=== PATIENT | female | born 1950 | race African-American/Black ===

== ENCOUNTER 2016-07-31 05:21 | Emergency (ER) | payer MEDICARE, MEDICAID ==
[~2016-07-31] VITALS: Ht 172.7 cm; Wt 81.0 kg
[~2016-07-31 05:21] MED LIST: AMLO10TA4; CAPT12.53; ERGO400C; INSASP; METF1000; PRAVASTATIN; [UNRECOGNIZED DRUG - OTHER]
[2016-07-31] MEDS ORDERED: IPRATROPIUM BROMIDE (0.02%) 0.5MG/2.5ML NEB HHN STA (06:20)
[2016-07-31] MEDS ORDERED: ALBUTEROL (0.083%) 2.5MG/3ML NEB HHN STA (06:20)
[2016-07-31 06:33] LABS: EOSINOPHILS % 2.5 % (0.0-5.0); HEMATOCRIT. 36.6 % (36.0-48.0); HEMOGLOBIN. 11.9 g/dL (12.0-16.0); LYMPHOCYTES % 47.1 % (20.0-50.0); MEAN CORPUSCULAR HEMOGLOBIN 25.9 pg (28.0-32.0); MEAN CORPUSCULAR VOLUME 79.8 fL (81.0-99.0); MEAN PLATELET VOLUME 9.3 fl (7.4-10.4); MONOCYTES % 9.8 % (2.0-8.0); NEUTROPHILS % 39.6 % (40.0-76.0); PLATELET 264 x1000/uL (130-400); RED BLOOD CELL COUNT 4.58 mill/uL (4.2-5.4); RED CELL DISTRIBUTION WIDTH 15.4 % (11.6-14.6)
[2016-07-31 07:27] VITALS: BP 134/86
== END 2016-07-31 07:58 | disposition home or self-care (01) ==
LOC: ER 05:21
DX: J40 Bronchitis, not specified as acute or chronic (principal); E86.0 Dehydration; I10 Essential (primary) hypertension; E11.9 Type 2 diabetes mellitus without complications; G80.9 Cerebral palsy, unspecified; Z86.73 Personal history of transient ischemic attack (TIA), and cerebral infarction without residual deficits; Z79.4 Long term (current) use of insulin
CPT/HCPCS: 36415; 71010; 80048; 85025; 94640; 99285; J7611

== ENCOUNTER → 2017-09-13 | Outpatient (CLI) | payer MEDICARE, MEDICAID ==
[~2017-09-13] MED LIST changes: +ATOR20TA65 PO; +CANA1TAB4 PO; +CLOP75TA33 PO; +INSU300I SQ
== END | disposition home or self-care (01) ==
LOC: CARD 10:56
PROVIDERS: ATTEND Family Medicine
DX: Z01.818 Encounter for other preprocedural examination (principal); E11.9 Type 2 diabetes mellitus without complications; I10 Essential (primary) hypertension; E78.5 Hyperlipidemia, unspecified; Z79.899 Other long term (current) drug therapy
CPT/HCPCS: 71045; 93005

== ENCOUNTER → 2017-10-06 | Outpatient (CLI) | payer MEDICARE, MEDICAID | END | disposition home or self-care (01) | LOC: RAD 11:20 | PROVIDERS: ATTEND Family Medicine | DX: M25.561 Pain in right knee (principal); E11.9 Type 2 diabetes mellitus without complications; I10 Essential (primary) hypertension; E66.9 Obesity, unspecified | CPT/HCPCS: 73562 ==

== ENCOUNTER → 2017-12-16 | Outpatient (CLI) | payer MEDICARE, MEDICAID | END | disposition home or self-care (01) | LOC: RAD 15:25 | PROVIDERS: ATTEND Family Medicine | DX: Z01.818 Encounter for other preprocedural examination (principal); M47.892 Other spondylosis, cervical region; K04.7 Periapical abscess without sinus | CPT/HCPCS: 71045; 72040; 93005 ==

== ENCOUNTER 2023-03-22 21:40 | Emergency (ER) | payer MEDICARE, MEDICAID ==
[~2023-03-22] VITALS: Ht 180.3 cm; Wt 126.0 kg
[~2023-03-22 21:40] MED LIST changes: +AMOX1TAB16 MT; +BISA10SU62 RC; -CANA1TAB4 PO; -CAPT12.53; -METF1000
[2023-03-22 21:46] VITALS: O2SAT 99
[2023-03-22] MEDS: SODIUM CHLORIDE 0.9% 1,000 ML IV ONE (22:48)
[2023-03-22 23:10] VITALS: BP 160/76; PULSE 96; RESP 12; TEMP 98.8
[2023-03-23 00:14] LABS: BASOPHILS % 0.9 % (0.0-2.0); EOSINOPHILS % 2.3 % (0.0-5.0); HEMATOCRIT. 27.9 % (36.0-48.0); HEMOGLOBIN. 8.9 g/dL (12.0-16.0); LYMPHOCYTES % 24.2 % (20.0-50.0); MEAN CORPUSCULAR HEMOGLOBIN 26.2 pg (28.0-32.0); MEAN CORPUSCULAR HGB CONC 31.9 g/dL (31.0-37.0); MEAN CORPUSCULAR VOLUME 82.1 fL (81.0-99.0); MEAN PLATELET VOLUME 9.7 fl (7.4-10.4); MONOCYTES % 11.7 % (2.0-8.0); NEUTROPHILS % 60.9 % (40.0-76.0); PLATELET 217 x1000/uL (130-400); WHITE BLOOD COUNT 6.2 x1000/uL (4.5-11.0)
[2023-03-23 00:31] LABS: ALANINE AMINOTRANSFERASE 23 IU/L (10-49); ALBUMIN 3.6 g/dL (3.2-4.8); ASPARTATE AMINOTRANSFERASE 22 IU/L (<34); BETA HYDROXYBUTYRATE 0.2 mMol/L (0.0-0.3); BILIRUBIN TOTAL 0.3 mg/dL (0.1-1.0); CALCIUM 8.7 mg/dL (8.7-10.4); CARBON DIOXIDE 21 mEq/L (21-32); CHLORIDE 103 mEq/L (98-107); CREATININE 1.5 mg/dL (0.6-1.0); GLUCOSE 369 mg/dL (70-105); POTASSIUM 3.4 mEq/L (3.5-5.1); PROTEIN TOTAL 6.8 g/dL (6.0-8.3); SODIUM 134 mEq/L (136-145); TROPONIN I HIGH SENSITIVITY 9 ng/L (3.0-34); UREA NITROGEN BLOOD 16 mg/dL (9-23)
[2023-03-23] MEDS: INSULIN REGULAR (HUMULIN R) 300UNITS/3ML VIAL IV ONE (02:00)
[2023-03-23] MEDS: POTASSIUM CHLORIDE 20MEQ TABLET SR PO ONE (02:01)
== END 2023-03-23 10:05 | disposition home or self-care (01) ==
LOC: ER 21:40
DX: E11.65 Type 2 diabetes mellitus with hyperglycemia (principal); F03.90 Unspecified dementia, unspecified severity, without behavioral disturbance, psychotic disturbance, mood disturbance, and anxiety; Z86.73 Personal history of transient ischemic attack (TIA), and cerebral infarction without residual deficits; Z88.8 Allergy status to other drugs, medicaments and biological substances; Z88.0 Allergy status to penicillin
CPT/HCPCS: 99285; 71045; 80053; 82010; 82962 ×2; 85025; 84484; 36415; 96361; 96374; 93005; J7030; J1815

== ENCOUNTER 2023-11-10 12:40 | Emergency (ER) | payer MEDICARE, MEDICAID ==
[~2023-11-10] VITALS: Ht 160 cm; Wt 80.0 kg
[~2023-11-10 12:40] MED LIST changes: -AMOX1TAB16 MT; +ASCO500T20 PO; -ATOR20TA65 PO; +CELE-146 PO; +CHOL2000 PO; +CLOP-31 PO; -CLOP75TA33 PO; -ERGO400C; +FERR325T30 PO; +LIP40 PO; +MOM PO; +NALO25TA4 PO; +OXYB-52 PO; +POLY119P2 MT; +REPA1TAB5 PO; +SENN1TAB35 PO; +SITA50TA3 PO; +SUCR1TAB PO
[2023-11-10 12:43] VITALS: O2SAT 94
[2023-11-10 14:51] LABS: BASOPHILS % 0.7 % (0.0-2.0); DIFFERENTIAL COMMENT 0; EOSINOPHILS % 2.1 % (0.0-5.0); HEMATOCRIT. 25.4 % (36.0-48.0); HEMOGLOBIN. 8.2 g/dL (12.0-16.0); LYMPHOCYTES % 17.2 % (20.0-50.0); MEAN CORPUSCULAR HEMOGLOBIN 23.7 pg (28.0-32.0); MEAN CORPUSCULAR HGB CONC 32.1 g/dL (31.0-37.0); MEAN CORPUSCULAR VOLUME 73.7 fL (81.0-99.0); MEAN PLATELET VOLUME 7.9 fl (7.4-10.4); MONOCYTES % 10.4 % (2.0-8.0); NEUTROPHILS % 69.6 % (40.0-76.0); PLATELET 300 x1000/uL (130-400); RED BLOOD CELL COUNT 3.45 mill/uL (4.2-5.4); RED CELL DISTRIBUTION WIDTH 18.9 % (11.6-14.6); WHITE BLOOD COUNT 6.8 x1000/uL (4.5-11.0)
[2023-11-10 15:00] LABS: PROTHROMBIN TIME 10.7 sec (9.6-11.0)
[2023-11-10 15:04] LABS: CHLORIDE 96 mEq/L (98-107); POTASSIUM 3.1 mEq/L (3.5-5.1); SODIUM 132 mEq/L (136-145)
[2023-11-10 15:05] LABS: CALCIUM 9.2 mg/dL (8.7-10.4); CARBON DIOXIDE 28 mEq/L (21-32)
[2023-11-10 15:10] LABS: GLUCOSE 158 mg/dL (70-105); UREA NITROGEN BLOOD 10 mg/dL (9-23)
[2023-11-10 15:11] LABS: TROPONIN I HIGH SENSITIVITY 10 ng/L (3.0-34)
[2023-11-10 15:14] LABS: CREATININE 2.1 mg/dL (0.6-1.0)
[2023-11-10 16:45] VITALS: BP 146/89; PULSE 88; RESP 16; TEMP 36.89184; O2SAT 94
[2023-11-10 18:11] LABS: TOTAL IRON BINDING CAPACITY 355 ug/dl (250-425)
[2023-11-10 18:13] LABS: IRON 360 ug/dL (50-170)
[2023-11-10 18:14] LABS: FOLIC ACID (FOLATE) SERUM > 20.00 ng/mL (>5.38)
[2023-11-10 18:15] LABS: FERRITIN 26 ng/mL (10-291)
[2023-11-10 18:18] LABS: VITAMIN B12 SERUM > 2000 pg/mL (211-911)
== END 2023-11-10 18:17 | disposition home or self-care (01) ==
LOC: ER 12:40
DX: N18.6 End stage renal disease (principal); D64.9 Anemia, unspecified; J44.89 Other specified chronic obstructive pulmonary disease; I12.0 Hypertensive chronic kidney disease with stage 5 chronic kidney disease or end stage renal disease; E11.22 Type 2 diabetes mellitus with diabetic chronic kidney disease; Z99.2 Dependence on renal dialysis; Z88.0 Allergy status to penicillin; Z91.013 Allergy to seafood; Z79.899 Other long term (current) drug therapy; Z86.73 Personal history of transient ischemic attack (TIA), and cerebral infarction without residual deficits; Z20.822 Contact with and (suspected) exposure to COVID-19
CPT/HCPCS: 36415; 71045; 80048; 82607; 82728; 82746; 83540; 83550; 84484; 85025; 86850; 86900; 93005; 99285

== ENCOUNTER 2024-05-10 12:02 | Inpatient (IN) | payer MEDICARE, MEDICAID ==
[~2024-05-10] VITALS: Ht 162.6 cm; Wt 113.4 kg
[~2024-05-10 12:02] MED LIST changes: -AMLO10TA4; +AMLO10TA80 PO; +ASPI-1160 PO; +ATOR-2 PO; -BISA10SU62 RC; -CELE-146 PO; -CLOP-31 PO; +CLOP75TA33 PO; +FAMO40TA7 PO; -FERR325T30 PO; -INSASP; -INSU300I SQ; +INSU300I SUBCUT; -LIP40 PO; -MOM PO; -NALO25TA4 PO; -OXYB-52 PO; -POLY119P2 MT; -PRAVASTATIN; -SENN1TAB35 PO; -SUCR1TAB PO; -[UNRECOGNIZED DRUG - OTHER]
[2024-05-10] MEDS ORDERED: CEFEPIME 2GM IN DEXT 5% 100ML IV STA (12:20)
[2024-05-10] MEDS: VANCOMYCIN 1G PREMIX 200 ML IV ONE (12:30)
[2024-05-10 12:59] LABS: BASOPHILS % 1.2 % (0.0-2.0); HEMATOCRIT. 28.9 % (36.0-48.0); HEMOGLOBIN. 9.2 g/dL (12.0-16.0); LYMPHOCYTES % 9.4 % (20.0-50.0); MEAN CORPUSCULAR HGB CONC 31.7 g/dL (31.0-37.0); MEAN CORPUSCULAR VOLUME 82.2 fL (81.0-99.0); MEAN PLATELET VOLUME 8.6 fl (7.4-10.4); MONOCYTES % 5.8 % (2.0-8.0); NEUTROPHILS % 81.6 % (40.0-76.0); PLATELET 325 x1000/uL (130-400); RED BLOOD CELL COUNT 3.52 mill/uL (4.2-5.4); RED CELL DISTRIBUTION WIDTH 24.6 % (11.6-14.6); WHITE BLOOD COUNT 8.6 x1000/uL (4.5-11.0)
[2024-05-10 13:03] LABS: ADD RBC MORPHOLOGY YES; DIFFERENTIAL COMMENT 1
[2024-05-10 13:11] LABS: CARBON DIOXIDE 28 mEq/L (21-32); CHLORIDE 96 mEq/L (98-107); POTASSIUM 4.1 mEq/L (3.5-5.1); SODIUM 139 mEq/L (136-145)
[2024-05-10 13:12] LABS: CALCIUM 9.3 mg/dL (8.7-10.4)
[2024-05-10 13:17] LABS: GLUCOSE 154 mg/dL (70-105); TROPONIN I HIGH SENSITIVITY 16 ng/L (3.0-34); UREA NITROGEN BLOOD 52 mg/dL (9-23)
[2024-05-10 13:18] LABS: ALANINE AMINOTRANSFERASE 19 IU/L (10-49); ALBUMIN 3.6 g/dL (3.2-4.8); ASPARTATE AMINOTRANSFERASE 26 IU/L (<34); LACTATE DEHYDROGENASE 256 IU/L (120-246)
[2024-05-10 13:19] LABS: BILIRUBIN TOTAL 0.3 mg/dL (0.1-1.0); CREATINE KINASE 33 IU/L (34-145); PROTEIN TOTAL 7.7 g/dL (6.0-8.3)
[2024-05-10] MEDS: CEFEPIME 2GM/50ML DUPLEX 50 ML IV NR (13:19)
[2024-05-10] MEDS: SODIUM CHLORIDE 0.9% 500 ML IV ONE (13:19)
[2024-05-10 13:25] LABS: INR 1.1; PROTHROMBIN TIME 11.9 sec (9.6-11.0)
[2024-05-10 13:26] LABS: BILIRUBIN DIRECT < 0.1 mg/dL (<=3.0); ETHANOL BLOOD < 10 mg/dL (<10)
[2024-05-10 13:28] LABS: CREATININE 5.8 mg/dL (0.6-1.0)
[2024-05-10 13:35] LABS: BG BASE EXCESS 2.2 mmol/L (-2.0-3.0); BG CARBOXYHEMOGLOBIN 0.9 % (0.5-1.5); BG DEOXYHEMOGLOBIN 3.5 % (0.0-5.0); BG METHEMOGLOBIN 0.3 % (0.5-1.5); BG OXYGEN SATURATION 96.5 % (94.0-98.0); BG OXYHEMOGLOBIN 95.3 % (94.0-98.0); BG PCO2 32.1 mmHg (32.0-45.0); BG PO2 82.5 mmHg (83.0-108.0); BG SAMPLE SITE RIGHT RADIAL; BG TOTAL HEMOGLOBIN 9.1 g/dL (12.0-16.0); BG VENT MODE MASK - NRB
[2024-05-10 14:01] LABS: INFLUENZA TYPE A Presumptive Negative (Pres. Neg.); INFLUENZA TYPE B Presumptive Negative (Pres. Neg.)
[2024-05-10 14:03] LABS: RESPIRATORY SYNCYTIAL VIRUS Not Detected (Not Detectd)
[2024-05-10 14:18] LABS: ANISOCYTOSIS 4+; PLATELET ESTIMATE NORMAL
[2024-05-10 15:15] LABS: TROPONIN I HIGH SENSITIVITY 16 ng/L (3.0-34)
[2024-05-10] MEDS ORDERED: ONDANSETRON HCL 4MG/2ML INJ IV PRN (15:15)
[2024-05-10] MEDS ORDERED: IPRATROPIUM/ALBUTEROL 0.5-3(2.5)MG/3ML NEB HHN PRN (15:15)
[2024-05-10] MEDS ORDERED: ACETAMINOPHEN 650MG/20.3ML UDC GT PRN (15:15)
[2024-05-10 16:00] VITALS: BP 154/74; PULSE 110; RESP 23; TEMP 36.3; O2SAT 94
[2024-05-10] MEDS ORDERED: DEXTROSE 50% WATER 50ML SYRINGE IV PRN (17:45)
[2024-05-10 18:00] VITALS: BP 124/52; PULSE 89; RESP 5; O2SAT 100
[2024-05-10] MEDS: PANTOPRAZOLE SODIUM 40 MG/VIAL IV NR (19:02)
[2024-05-10 19:07] VITALS: BP 154/74; PULSE 102; RESP 19; TEMP 36.5
[2024-05-10] MEDS: INSULIN LISPRO 100 UNITS/ML SUBCUT SCH (19:40)
[2024-05-10 20:00] VITALS: BP 140/71; PULSE 89; RESP 15; TEMP 36.3; O2SAT 94
[2024-05-10] MEDS ORDERED: MEDICATION NOT ON FORMULARY EA (Atorvastatin Calcium 1 TAB) PO SCH (21:00)
[2024-05-10] MEDS: ASCORBIC ACID 500 MG TABLET PO SCH (21:12)
[2024-05-10] MEDS: ATORVASTATIN CALCIUM 40MG TABLET PO SCH (21:13)
[2024-05-10] MEDS: BLOOD SUGAR DIAGNOSTIC STRIP TEST SCH (21:13)
[2024-05-10] MEDS: INSULIN GLARGINE 100 UNITS/ML SUBCUT SCH (21:14)
[2024-05-10 22:00] VITALS: BP 131/66; PULSE 83; RESP 14; O2SAT 96
[2024-05-11] VITALS (21 sets, daily range): BP systolic 98–145; BP diastolic 54–102; PULSE 85–102; RESP 12–24; TEMP 36.2–37.1; O2SAT 90–99
[2024-05-11 06:42] LABS: POTASSIUM 4.5 mEq/L (3.5-5.1)
[2024-05-11 06:43] LABS: EOSINOPHILS % 3.2 % (0.0-5.0); HEMOGLOBIN. 9.1 g/dL (12.0-16.0); LYMPHOCYTES % 18.9 % (20.0-50.0); MEAN CORPUSCULAR HEMOGLOBIN 26.1 pg (28.0-32.0); MEAN CORPUSCULAR HGB CONC 31.2 g/dL (31.0-37.0); MEAN CORPUSCULAR VOLUME 83.4 fL (81.0-99.0); MEAN PLATELET VOLUME 8.5 fl (7.4-10.4); MONOCYTES % 10.4 % (2.0-8.0); NEUTROPHILS % 66.5 % (40.0-76.0); PLATELET 291 x1000/uL (130-400); RED BLOOD CELL COUNT 3.48 mill/uL (4.2-5.4); WHITE BLOOD COUNT 8.4 x1000/uL (4.5-11.0)
[2024-05-11 06:44] LABS: CALCIUM 9.5 mg/dL (8.7-10.4)
[2024-05-11 07:08] LABS: CREATININE 6.6 mg/dL (0.6-1.0)
[2024-05-11 07:18] LABS: DIFFERENTIAL COMMENT 1
[2024-05-11] MEDS ORDERED: HYDRALAZINE 20MG/ML VIAL IV PRN (08:00)
[2024-05-11] MEDS: CLOPIDOGREL 75MG TABLET PO SCH (09:20)
[2024-05-11] MEDS: ASPIRIN 81MG TABLET PO SCH (09:20)
[2024-05-11] MEDS: PANTOPRAZOLE SODIUM 40 MG/VIAL IV SCH (09:20)
[2024-05-11] MEDS ORDERED: AZITHROMYCIN 250 MG in DEXT 5% WATER 250 ML IV SCH (10:15)
[2024-05-11] MEDS: AZITHROMYCIN 500MG/250ML 250 ML IV SCH (12:26)
[2024-05-11] MEDS: CEFEPIME 1GM/50ML 50 ML IV SCH (12:26)
[2024-05-11 18:08] LABS: CLARITY URINE CLOUDY (CLEAR); COLOR URINE YELLOW (YELLOW); GLUCOSE URINE 1+ (NEGATIVE); KETONES URINE NEGATIVE (NEGATIVE); LEUKOCYTE ESTERASE URINE 2+ (NEGATIVE); NITRITE URINE NEGATIVE (NEGATIVE); OCCULT BLOOD URINE 1+ (NEGATIVE); PH URINE >=9.0 (4.5-8.0); PROTEIN URINE 2+ (NEGATIVE); SPECIFIC GRAVITY URINE 1.015 (1.005-1.030); UROBILINOGEN URINE 0.2 E.U./dL (0.2-1.0)
[2024-05-11 18:27] LABS: *AMPHETAMINES SCREEN URINE NEGATIVE (NEGATIVE); *BARBITURATES SCREEN URINE NEGATIVE (NEGATIVE); *BENZODIAZEPINES SCREEN URINE NEGATIVE (NEGATIVE); *COCAINE SCREEN URINE NEGATIVE (NEGATIVE)
[2024-05-11 18:28] LABS: CANNABINOID URINE SCREEN NEGATIVE (NEGATIVE); ECSTASY MDMA SCREEN URINE NEGATIVE (NEGATIVE); METHADONE URINE SCREEN NEGATIVE (NEGATIVE); OPIATES URINE SCREEN NEGATIVE (NEGATIVE); PHENCYCLIDINE URINE SCREEN NEGATIVE (NEGATIVE)
[2024-05-11 20:14] LABS: BACTERIA URINE 1+; RBC URINE 0-2 /hpf (0-2); SQUAMOUS EPITHELIAL CELL URINE 1+ /lpf (RARE/1+); WBC URINE 0-2 /hpf (0-2)
[2024-05-11 20:15] LABS: YEAST URINE 2+
[2024-05-11 21:50] LABS: HEPATITIS B SURFACE ANTIGEN NEGATIVE (Negative)
[2024-05-11] MEDS: EPOETIN ALFA-EPBX 4,000 UNIT/ML VIAL SUBCUT SCH (21:53)
[2024-05-11 22:10] LABS: HEPATITIS A AB IGM NEGATIVE (Negative)
[2024-05-11 22:11] LABS: HEPATITIS B CORE AB IGM NEGATIVE (Negative)
[2024-05-11 22:12] LABS: HEPATITIS C AB NON REACTIVE (Neg) (Negative)
[2024-05-12] VITALS (14 sets, daily range): BP systolic 115–147; BP diastolic 64–100; PULSE 78–103; RESP 10–24; TEMP 36.22512–37.8; O2SAT 93–99
[2024-05-12 08:58] LABS: BASOPHILS % 1.2 % (0.0-2.0); EOSINOPHILS % 4.1 % (0.0-5.0); HEMATOCRIT. 26.1 % (36.0-48.0); HEMOGLOBIN. 8.2 g/dL (12.0-16.0); MEAN CORPUSCULAR HEMOGLOBIN 26.1 pg (28.0-32.0); MEAN CORPUSCULAR HGB CONC 31.6 g/dL (31.0-37.0); MEAN CORPUSCULAR VOLUME 82.8 fL (81.0-99.0); MEAN PLATELET VOLUME 8.6 fl (7.4-10.4); MONOCYTES % 9.8 % (2.0-8.0); NEUTROPHILS % 69.9 % (40.0-76.0); PLATELET 278 x1000/uL (130-400); RED BLOOD CELL COUNT 3.15 mill/uL (4.2-5.4); RED CELL DISTRIBUTION WIDTH 23.6 % (11.6-14.6); WHITE BLOOD COUNT 7.1 x1000/uL (4.5-11.0)
[2024-05-12 09:24] LABS: CARBON DIOXIDE 29 mEq/L (21-32); CHLORIDE 102 mEq/L (98-107); POTASSIUM 3.9 mEq/L (3.5-5.1); SODIUM 140 mEq/L (136-145)
[2024-05-12 09:25] LABS: CALCIUM 9.5 mg/dL (8.7-10.4)
[2024-05-12 09:30] LABS: GLUCOSE 331 mg/dL (70-105); UREA NITROGEN BLOOD 33 mg/dL (9-23)
[2024-05-12 09:33] LABS: PHOSPHORUS 2.5 mg/dL (2.5-4.9)
[2024-05-12 09:46] LABS: ADD RBC MORPHOLOGY NO; DIFFERENTIAL COMMENT 1
[2024-05-12 11:28] LABS: BG BASE EXCESS 3.2 mmol/L (-2.0-3.0); BG CARBOXYHEMOGLOBIN 1.2 % (0.5-1.5); BG DEOXYHEMOGLOBIN 9.3 % (0.0-5.0); BG FRACTION INSPIRED OXYGEN 21; BG HCO3 ACT 25.5 mmol/L (21.0-28.0); BG METHEMOGLOBIN 0.3 % (0.5-1.5); BG OXYGEN SATURATION 90.6 % (94.0-98.0); BG OXYHEMOGLOBIN 89.2 % (94.0-98.0); BG PCO2 30.6 mmHg (32.0-45.0); BG PH 7.539 (7.350-7.450); BG PO2 55.6 mmHg (83.0-108.0); BG SAMPLE SITE RIGHT RADIAL; BG TOTAL HEMOGLOBIN 9.2 g/dL (12.0-16.0); BG VENT MODE ROOM AIR
[2024-05-12] MEDS ORDERED: HYDRALAZINE 10 MG in SODIUM CHLORIDE 0.9% 49.5 ML IV PRN (12:15)
[2024-05-12] MEDS: INSULIN LISPRO 100 UNITS/ML SUBCUT SCH (17:38)
[2024-05-12] MEDS: INSULIN GLARGINE 100 UNITS/ML SUBCUT SCH (22:06)
[2024-05-13] VITALS (15 sets, daily range): BP systolic 106–160; BP diastolic 51–90; PULSE 89–107; RESP 16–19; TEMP 36.33624–38.3; O2SAT 95–100
[2024-05-13] MEDS: ACETAMINOPHEN 650MG/20.3ML UDC GT PRN (05:55)
[2024-05-13 06:40] LABS: BASOPHILS % 1.2 % (0.0-2.0); EOSINOPHILS % 4.7 % (0.0-5.0); HEMATOCRIT. 27.5 % (36.0-48.0); HEMOGLOBIN. 8.6 g/dL (12.0-16.0); LYMPHOCYTES % 20.8 % (20.0-50.0); MEAN CORPUSCULAR HEMOGLOBIN 25.7 pg (28.0-32.0); MEAN CORPUSCULAR HGB CONC 31.2 g/dL (31.0-37.0); MEAN CORPUSCULAR VOLUME 82.6 fL (81.0-99.0); MEAN PLATELET VOLUME 8.3 fl (7.4-10.4); MONOCYTES % 8.5 % (2.0-8.0); NEUTROPHILS % 64.8 % (40.0-76.0); PLATELET 262 x1000/uL (130-400); RED BLOOD CELL COUNT 3.33 mill/uL (4.2-5.4); RED CELL DISTRIBUTION WIDTH 23.4 % (11.6-14.6); WHITE BLOOD COUNT 7.1 x1000/uL (4.5-11.0)
[2024-05-13 06:56] LABS: ADD RBC MORPHOLOGY NO; CHLORIDE 99 mEq/L (98-107); DIFFERENTIAL COMMENT 1; SODIUM 139 mEq/L (136-145)
[2024-05-13 06:57] LABS: CALCIUM 9.8 mg/dL (8.7-10.4); CARBON DIOXIDE 29 mEq/L (21-32)
[2024-05-13 07:02] LABS: CREATININE 4.2 mg/dL (0.6-1.0); GLUCOSE 399 mg/dL (70-105); UREA NITROGEN BLOOD 36 mg/dL (9-23)
[2024-05-13 07:04] LABS: PHOSPHORUS 2.1 mg/dL (2.5-4.9)
[2024-05-13] MEDS: FLUCONAZOLE 100MG TABLET PO SCH (09:00)
[2024-05-13] MEDS: INSULIN GLARGINE 100 UNITS/ML SUBCUT SCH (09:46)
[2024-05-13] MEDS ORDERED: LEVO750T68 MT (11:21)
[2024-05-13] MEDS: FLUCONAZOLE 40 MG/ML ORAL SYRINGE GT SCH (17:05)
[2024-05-13] MEDS ORDERED: POTASSIUM-SODIUM PHOSPHATE POWDER PACKET PO SCH (21:00)
== END 2024-05-13 19:33 | disposition home or self-care (01) | DRG 871 ==
LOC: ER 12:02 → 5EST 14:02 → EDBEDREQTM 14:03 → EDBEDREQ 14:03 → EDBEDREQSVC 14:03 → 6EST 05-12 12:10
PROVIDERS: ADMIT Internal Medicine; ATTEND Internal Medicine
PROC: 5A1D70Z Performance of Urinary Filtration, Intermittent, Less than 6 Hours Per Day (ICD-10-PCS; principal; 2024-05-11)
PROC: 5A1D70Z Performance of Urinary Filtration, Intermittent, Less than 6 Hours Per Day (ICD-10-PCS; 2024-05-12)
PROC: 5A1D70Z Performance of Urinary Filtration, Intermittent, Less than 6 Hours Per Day (ICD-10-PCS; 2024-05-13)
DX: A41.9 Sepsis, unspecified organism (principal); G80.0 Spastic quadriplegic cerebral palsy; J96.01 Acute respiratory failure with hypoxia; N18.6 End stage renal disease; G92.8 Other toxic encephalopathy; J18.9 Pneumonia, unspecified organism; I12.0 Hypertensive chronic kidney disease with stage 5 chronic kidney disease or end stage renal disease; I69.351 Hemiplegia and hemiparesis following cerebral infarction affecting right dominant side; J44.0 Chronic obstructive pulmonary disease with (acute) lower respiratory infection; N39.0 Urinary tract infection, site not specified; R47.01 Aphasia; E11.22 Type 2 diabetes mellitus with diabetic chronic kidney disease; D64.9 Anemia, unspecified; E11.621 Type 2 diabetes mellitus with foot ulcer; E78.5 Hyperlipidemia, unspecified; F03.90 Unspecified dementia, unspecified severity, without behavioral disturbance, psychotic disturbance, mood disturbance, and anxiety; G47.33 Obstructive sleep apnea (adult) (pediatric); Z20.822 Contact with and (suspected) exposure to COVID-19; H51.0 Palsy (spasm) of conjugate gaze; Y95 Nosocomial condition; L98.429 Non-pressure chronic ulcer of back with unspecified severity; R13.10 Dysphagia, unspecified; D50.9 Iron deficiency anemia, unspecified; M24.531 Contracture, right wrist; Z93.1 Gastrostomy status; Z99.2 Dependence on renal dialysis; Z82.49 Family history of ischemic heart disease and other diseases of the circulatory system; Z79.899 Other long term (current) drug therapy; Z79.82 Long term (current) use of aspirin; Z79.4 Long term (current) use of insulin; Z79.02 Long term (current) use of antithrombotics/antiplatelets; Z74.01 Bed confinement status; Z88.0 Allergy status to penicillin
CPT/HCPCS: 36415; 36600; 71045; 80048; 80076; 80305; 80320; 81003; 82375; 82550; 82805; 82962; 83605; 83615; 83735; 83880; 84100; 84145; 84484; 85025; 86705; 86709; 86850; 86900; 87077; 87186; 87340; 87420; 87426; 87804; 90935; 93005; 93970; 99291; J0456; J0692; J0885; J1815; J2470; J3370; J7040; G0480

== ENCOUNTER 2024-06-29 22:19 | Inpatient (IN) | payer MEDICARE, MEDICAID ==
[~2024-06-29] VITALS: Ht 165.1 cm; Wt 77.1 kg
[~2024-06-29 22:19] MED LIST changes: +CEFP100T8 PEG; +INSHUMSS SUBCUT; +KEPP500 MT; +MIDO5TAB4 GT; -REPA1TAB5 PO; -SITA50TA3 PO
[2024-06-29 23:54] LABS: BASOPHILS % 0.8 % (0.0-2.0); DIFFERENTIAL COMMENT 0; EOSINOPHILS % 1.8 % (0.0-5.0); HEMATOCRIT. 40.8 % (36.0-48.0); HEMOGLOBIN. 12.6 g/dL (12.0-16.0); LYMPHOCYTES % 14.2 % (20.0-50.0); MEAN CORPUSCULAR HEMOGLOBIN 25.1 pg (28.0-32.0); MEAN CORPUSCULAR HGB CONC 30.9 g/dL (31.0-37.0); MEAN CORPUSCULAR VOLUME 81.2 fL (81.0-99.0); MEAN PLATELET VOLUME 8.5 fl (7.4-10.4); MONOCYTES % 10.4 % (2.0-8.0); NEUTROPHILS % 72.8 % (40.0-76.0); PLATELET 297 x1000/uL (130-400); RED BLOOD CELL COUNT 5.02 mill/uL (4.2-5.4); RED CELL DISTRIBUTION WIDTH 20.7 % (11.6-14.6); WHITE BLOOD COUNT 9.6 x1000/uL (4.5-11.0)
[2024-06-30] VITALS (17 sets, daily range): BP systolic 94–121; BP diastolic 61–108; PULSE 92–103; RESP 18–29; TEMP 33.8916–36.8; O2SAT 71–94
[2024-06-30 00:02] LABS: INR 1.2; PROTHROMBIN TIME 12.6 sec (9.6-11.0)
[2024-06-30 00:06] LABS: CHLORIDE 96 mEq/L (98-107); POTASSIUM 3.9 mEq/L (3.5-5.1); SODIUM 141 mEq/L (136-145)
[2024-06-30 00:07] LABS: CALCIUM 10.3 mg/dL (8.7-10.4); CARBON DIOXIDE 33 mEq/L (21-32)
[2024-06-30 00:12] LABS: GLUCOSE 175 mg/dL (70-105); UREA NITROGEN BLOOD 30 mg/dL (9-23)
[2024-06-30 00:13] LABS: TROPONIN I HIGH SENSITIVITY 22 ng/L (3.0-34)
[2024-06-30 00:14] LABS: ALANINE AMINOTRANSFERASE 10 IU/L (10-49); ALBUMIN 4.4 g/dL (3.2-4.8); ASPARTATE AMINOTRANSFERASE 13 IU/L (<34); BILIRUBIN DIRECT 0.1 mg/dL (<=3.0)
[2024-06-30 00:15] LABS: BILIRUBIN TOTAL 0.3 mg/dL (0.1-1.0)
[2024-06-30 00:27] LABS: PROTEIN TOTAL 8.4 g/dL (6.0-8.3)
[2024-06-30 00:29] LABS: CREATININE 5.2 mg/dL (0.6-1.0)
[2024-06-30] MEDS: ONDANSETRON HCL 4MG/2ML INJ IV ONE (01:17)
[2024-06-30] MEDS: VANCOMYCIN 1G PREMIX 200 ML IV ONE (01:21)
[2024-06-30] MEDS ORDERED: IPRATROPIUM/ALBUTEROL 0.5-3(2.5)MG/3ML NEB HHN PRN (03:15)
[2024-06-30] MEDS ORDERED: ACETAMINOPHEN 650MG/20.3ML UDC GT PRN (03:15)
[2024-06-30] MEDS ORDERED: DEXTROSE 50% WATER 50ML SYRINGE IV PRN (03:15)
[2024-06-30] MEDS ORDERED: SENNOSIDES/DOCUSATE SOD 8.6/50MG TABLET PO PRN (03:15)
[2024-06-30] MEDS: BLOOD SUGAR DIAGNOSTIC STRIP TEST SCH (07:30)
[2024-06-30] MEDS: INSULIN LISPRO 100 UNITS/ML SUBCUT SCH (08:00)
[2024-06-30] MEDS ORDERED: LEVETIRACETAM 500MG in NACL 100ML PREMIX IV SCH (09:00)
[2024-06-30] MEDS: LEVETIRACETAM 500MG PREMIX 100 ML IV SCH (09:10)
[2024-06-30] MEDS: CLOPIDOGREL 75MG TABLET PO SCH (09:11)
[2024-06-30] MEDS: ASPIRIN 81MG EC TABLET PO SCH (09:11)
[2024-06-30] MEDS: PANTOPRAZOLE SODIUM 40 MG/VIAL IV SCH (09:11)
[2024-06-30] MEDS: ENOXAPARIN 30MG/0.3ML SYR SUBCUT SCH (09:12)
[2024-06-30 10:19] LABS: TROPONIN I HIGH SENSITIVITY 17 ng/L (3.0-34)
[2024-06-30 11:28] LABS: BG BASE EXCESS 6.8 mmol/L (-2.0-3.0); BG CARBOXYHEMOGLOBIN 1.2 % (0.5-1.5); BG DEOXYHEMOGLOBIN 6.2 % (0.0-5.0); BG FRACTION INSPIRED OXYGEN 40; BG HCO3 ACT 31.5 mmol/L (21.0-28.0); BG METHEMOGLOBIN 0.1 % (0.5-1.5); BG OXYGEN SATURATION 93.7 % (94.0-98.0); BG OXYHEMOGLOBIN 92.5 % (94.0-98.0); BG PCO2 45.4 mmHg (32.0-45.0); BG PH 7.459 (7.350-7.450); BG PO2 70.6 mmHg (83.0-108.0); BG SAMPLE SITE RIGHT RADIAL; BG TOTAL HEMOGLOBIN 12.8 g/dL (12.0-16.0); BG VENT MODE NASAL CANNULA
[2024-06-30 11:30] LABS: HEPATITIS B SURFACE ANTIGEN NEGATIVE (Negative)
[2024-06-30 11:51] LABS: HEPATITIS A AB IGM NEGATIVE (Negative)
[2024-06-30 11:52] LABS: HEPATITIS B CORE AB IGM NEGATIVE (Negative); HEPATITIS C AB NON REACTIVE (Neg) (Negative)
[2024-06-30] MEDS: LEVOFLOXACIN 750MG PREMIX 150 ML IV NR (13:00)
[2024-06-30] MEDS ORDERED: TOBRAMYCIN SULFATE 80MG/2ML 30ML INH SCH (13:00)
[2024-06-30] MEDS ORDERED: SENNOSIDES/DOCUSATE SOD 8.6/50MG TABLET GT PRN (13:15)
[2024-06-30] MEDS: POLYETHYLENE GLYCOL 3350 (17GM) 1 DOSE PACK GT SCH (13:15)
[2024-06-30] MEDS: BISACODYL 10MG SUPP PR NR ×2 (13:38→22:47)
[2024-06-30] MEDS: LEVOFLOXACIN 750MG PREMIX 150 ML IV ONE (15:19)
[2024-06-30 17:01] LABS: BG BASE EXCESS 0.5 mmol/L (-2.0-3.0); BG CARBOXYHEMOGLOBIN 0.6 % (0.5-1.5); BG DEOXYHEMOGLOBIN 10.5 % (0.0-5.0); BG FRACTION INSPIRED OXYGEN 100; BG HCO3 ACT 25.8 mmol/L (21.0-28.0); BG METHEMOGLOBIN 0.1 % (0.5-1.5); BG OXYGEN SATURATION 89.4 % (94.0-98.0); BG OXYHEMOGLOBIN 88.8 % (94.0-98.0); BG PCO2 44.2 mmHg (32.0-45.0); BG PH 7.384 (7.350-7.450); BG PO2 63.1 mmHg (83.0-108.0); BG SAMPLE SITE LEFT RADIAL; BG TOTAL HEMOGLOBIN 12.9 g/dL (12.0-16.0); BG VENT MODE MASK - NRB
[2024-06-30 19:02] LABS: BASOPHILS % 0.3 % (0.0-2.0); DIFFERENTIAL COMMENT 0; HEMATOCRIT. 42.2 % (36.0-48.0); HEMOGLOBIN. 12.6 g/dL (12.0-16.0); MEAN CORPUSCULAR HEMOGLOBIN 24.7 pg (28.0-32.0); MEAN CORPUSCULAR HGB CONC 29.8 g/dL (31.0-37.0); MEAN CORPUSCULAR VOLUME 83.1 fL (81.0-99.0); MEAN PLATELET VOLUME 8.8 fl (7.4-10.4); NEUTROPHILS % 80.7 % (40.0-76.0); PLATELET 240 x1000/uL (130-400); RED BLOOD CELL COUNT 5.08 mill/uL (4.2-5.4); RED CELL DISTRIBUTION WIDTH 20.5 % (11.6-14.6); WHITE BLOOD COUNT 9.7 x1000/uL (4.5-11.0)
[2024-06-30 19:09] LABS: PROTHROMBIN TIME 11.1 sec (9.6-11.0)
[2024-06-30 19:14] LABS: CHLORIDE 99 mEq/L (98-107); POTASSIUM 4.6 mEq/L (3.5-5.1); SODIUM 141 mEq/L (136-145)
[2024-06-30 19:15] LABS: CALCIUM 9.7 mg/dL (8.7-10.4); CARBON DIOXIDE 28 mEq/L (21-32)
[2024-06-30 19:16] LABS: TROPONIN I HIGH SENSITIVITY 13 ng/L (3.0-34)
[2024-06-30 19:20] LABS: CREATININE 4.5 mg/dL (0.6-1.0); GLUCOSE 230 mg/dL (70-105); UREA NITROGEN BLOOD 26 mg/dL (9-23)
[2024-06-30 19:21] LABS: PROTEIN TOTAL 8.6 g/dL (6.0-8.3)
[2024-06-30 19:22] LABS: ALANINE AMINOTRANSFERASE 9 IU/L (10-49); ALBUMIN 4.5 g/dL (3.2-4.8); ASPARTATE AMINOTRANSFERASE 11 IU/L (<34); BILIRUBIN DIRECT 0.2 mg/dL (<=3.0); PHOSPHORUS 4.5 mg/dL (2.5-4.9)
[2024-06-30 19:23] LABS: BILIRUBIN TOTAL 0.4 mg/dL (0.1-1.0)
[2024-06-30] MEDS: IPRATROPIUM/ALBUTEROL 0.5-3(2.5)MG/3ML NEB HHN SCH (20:52)
[2024-06-30] MEDS: ATORVASTATIN CALCIUM 40MG TABLET GT SCH (22:11)
[2024-07-01] VITALS (17 sets, daily range): BP systolic 73–140; BP diastolic 60–81; PULSE 99–106; RESP 12–35; TEMP 36.4–36.8; O2SAT 91–100
[2024-07-01 00:58] LABS: BG BASE EXCESS 2.4 mmol/L (-2.0-3.0); BG CARBOXYHEMOGLOBIN 1.3 % (0.5-1.5); BG DEOXYHEMOGLOBIN 3.9 % (0.0-5.0); BG FRACTION INSPIRED OXYGEN 100; BG HCO3 ACT 28.1 mmol/L (21.0-28.0); BG METHEMOGLOBIN 0.3 % (0.5-1.5); BG OXYHEMOGLOBIN 94.5 % (94.0-98.0); BG PCO2 46.9 mmHg (32.0-45.0); BG PH 7.395 (7.350-7.450); BG PO2 84.9 mmHg (83.0-108.0); BG SAMPLE SITE LEFT RADIAL; BG TOTAL HEMOGLOBIN 16.6 g/dL (12.0-16.0); BG VENT MODE MASK - NRB
[2024-07-01] MEDS: NA PHOS,M-B/NA PHOS,DI-BA ENEMA 118ML PR SCH (08:00)
[2024-07-01] MEDS: LACTULOSE 20G/30ML UDC PO SCH (08:00)
[2024-07-01 08:26] LABS: BASOPHILS % 0.3 % (0.0-2.0); DIFFERENTIAL COMMENT 0; EOSINOPHILS % 0.8 % (0.0-5.0); HEMATOCRIT. 40.5 % (36.0-48.0); HEMOGLOBIN. 12.2 g/dL (12.0-16.0); LYMPHOCYTES % 9.1 % (20.0-50.0); MEAN CORPUSCULAR HEMOGLOBIN 24.8 pg (28.0-32.0); MEAN CORPUSCULAR HGB CONC 30.1 g/dL (31.0-37.0); MEAN CORPUSCULAR VOLUME 82.1 fL (81.0-99.0); MEAN PLATELET VOLUME 8.6 fl (7.4-10.4); MONOCYTES % 13.3 % (2.0-8.0); NEUTROPHILS % 76.5 % (40.0-76.0); PLATELET 201 x1000/uL (130-400); RED BLOOD CELL COUNT 4.93 mill/uL (4.2-5.4); RED CELL DISTRIBUTION WIDTH 20.1 % (11.6-14.6); WHITE BLOOD COUNT 8.6 x1000/uL (4.5-11.0)
[2024-07-01 08:28] LABS: CHLORIDE 101 mEq/L (98-107); POTASSIUM 4.5 mEq/L (3.5-5.1); SODIUM 139 mEq/L (136-145)
[2024-07-01 08:29] LABS: CALCIUM 9.7 mg/dL (8.7-10.4); CARBON DIOXIDE 28 mEq/L (21-32)
[2024-07-01 08:34] LABS: GLUCOSE 197 mg/dL (70-105); TRIGLYCERIDE 83 mg/dL (0-150); UREA NITROGEN BLOOD 32 mg/dL (9-23)
[2024-07-01 08:35] LABS: LDL CHOLESTEROL 60 mg/dL (5-100)
[2024-07-01 08:36] LABS: ALANINE AMINOTRANSFERASE 8 IU/L (10-49); ALBUMIN 4.1 g/dL (3.2-4.8); ASPARTATE AMINOTRANSFERASE 11 IU/L (<34); BILIRUBIN DIRECT 0.1 mg/dL (<=3.0); BILIRUBIN TOTAL 0.4 mg/dL (0.1-1.0); CHOLESTEROL 111 mg/dL (<200); HDL CHOLESTEROL 37 mg/dL (>65); PHOSPHORUS 4.6 mg/dL (2.5-4.9); PREALBUMIN 19.2 mg/dl (10.0-40.0)
[2024-07-01 08:37] LABS: PROTEIN TOTAL 7.8 g/dL (6.0-8.3)
[2024-07-01 08:38] LABS: CREATININE 5.3 mg/dL (0.6-1.0); T4 FREE 1.53 ng/dL (0.89-1.76)
[2024-07-01 10:58] LABS: BG BASE EXCESS 2.7 mmol/L (-2.0-3.0); BG CARBOXYHEMOGLOBIN 0.6 % (0.5-1.5); BG DEOXYHEMOGLOBIN 3.7 % (0.0-5.0); BG FRACTION INSPIRED OXYGEN 100; BG HCO3 ACT 27.7 mmol/L (21.0-28.0); BG METHEMOGLOBIN 0.1 % (0.5-1.5); BG OXYGEN SATURATION 96.3 % (94.0-98.0); BG OXYHEMOGLOBIN 95.6 % (94.0-98.0); BG PCO2 44.4 mmHg (32.0-45.0); BG PH 7.413 (7.350-7.450); BG PO2 86.1 mmHg (83.0-108.0); BG SAMPLE SITE LEFT RADIAL; BG TOTAL HEMOGLOBIN 12.4 g/dL (12.0-16.0); BG VENT MODE HIGH FLOW
[2024-07-01] MEDS: TOBRAMYCIN SULFATE 40MG/ML 2ML INH SCH (21:00)
[2024-07-02] VITALS (19 sets, daily range): BP systolic 102–135; BP diastolic 58–79; PULSE 97–110; RESP 7–24; TEMP 35.9–36.8; O2SAT 91–99
[2024-07-02] MEDS: ACETYLCYSTEINE 200MG/ML 20% VIAL 4ML INH SCH (01:05)
[2024-07-02] MEDS: LEVOFLOXACIN 500MG PREMIX 100 ML IV SCH (10:17)
[2024-07-02] MEDS: GUAIFENESIN 200MG/10ML SUGAR FREE UDC PO SCH (13:35)
[2024-07-02] MEDS: VANCOMYCIN 1.5GM/250ML 250 ML IV SCH (13:35)
[2024-07-03] VITALS (26 sets, daily range): BP systolic 98–132; BP diastolic 53–101; PULSE 98–112; RESP 14–24; TEMP 36.1–37.3; O2SAT 91–100
[2024-07-03 06:33] LABS: CHLORIDE 101 mEq/L (98-107); POTASSIUM 5.2 mEq/L (3.5-5.1); SODIUM 139 mEq/L (136-145)
[2024-07-03 06:34] LABS: CALCIUM 9.2 mg/dL (8.7-10.4); CARBON DIOXIDE 23 mEq/L (21-32)
[2024-07-03 06:39] LABS: BASOPHILS % 0.4 % (0.0-2.0); DIFFERENTIAL COMMENT 0; EOSINOPHILS % 1.4 % (0.0-5.0); GLUCOSE 170 mg/dL (70-105); HEMATOCRIT. 35.6 % (36.0-48.0); LYMPHOCYTES % 15.5 % (20.0-50.0); MEAN CORPUSCULAR HEMOGLOBIN 24.8 pg (28.0-32.0); MEAN CORPUSCULAR HGB CONC 30.9 g/dL (31.0-37.0); MEAN CORPUSCULAR VOLUME 80.4 fL (81.0-99.0); MEAN PLATELET VOLUME 9.3 fl (7.4-10.4); MONOCYTES % 11.4 % (2.0-8.0); NEUTROPHILS % 71.3 % (40.0-76.0); PLATELET 214 x1000/uL (130-400); RED BLOOD CELL COUNT 4.43 mill/uL (4.2-5.4); RED CELL DISTRIBUTION WIDTH 20.2 % (11.6-14.6); UREA NITROGEN BLOOD 43 mg/dL (9-23); WHITE BLOOD COUNT 8.1 x1000/uL (4.5-11.0)
[2024-07-03 06:41] LABS: PHOSPHORUS 4.9 mg/dL (2.5-4.9)
[2024-07-03 06:52] LABS: CREATININE 7.6 mg/dL (0.6-1.0)
[2024-07-03] MEDS: FAMOTIDINE 20MG/2ML VIAL IV SCH (08:50)
[2024-07-03] MEDS ORDERED: METO25TA6 PO (15:36)
[2024-07-04] VITALS (19 sets, daily range): BP systolic 102–132; BP diastolic 54–77; PULSE 92–103; RESP 13–25; TEMP 36.1–36.8; O2SAT 90–97
[2024-07-04 06:43] LABS: BASOPHILS % 0.4 % (0.0-2.0); DIFFERENTIAL COMMENT 0; EOSINOPHILS % 1.7 % (0.0-5.0); HEMATOCRIT. 36.6 % (36.0-48.0); HEMOGLOBIN. 11.3 g/dL (12.0-16.0); LYMPHOCYTES % 16.4 % (20.0-50.0); MEAN CORPUSCULAR HEMOGLOBIN 24.7 pg (28.0-32.0); MEAN CORPUSCULAR HGB CONC 30.7 g/dL (31.0-37.0); MEAN CORPUSCULAR VOLUME 80.3 fL (81.0-99.0); MEAN PLATELET VOLUME 9.5 fl (7.4-10.4); MONOCYTES % 12.3 % (2.0-8.0); NEUTROPHILS % 69.2 % (40.0-76.0); PLATELET 176 x1000/uL (130-400); RED BLOOD CELL COUNT 4.56 mill/uL (4.2-5.4); RED CELL DISTRIBUTION WIDTH 20.4 % (11.6-14.6); WHITE BLOOD COUNT 7.6 x1000/uL (4.5-11.0)
[2024-07-04 06:50] LABS: CHLORIDE 98 mEq/L (98-107); POTASSIUM 3.7 mEq/L (3.5-5.1); SODIUM 137 mEq/L (136-145)
[2024-07-04 06:51] LABS: CALCIUM 9.1 mg/dL (8.7-10.4); CARBON DIOXIDE 27 mEq/L (21-32)
[2024-07-04 06:56] LABS: GLUCOSE 280 mg/dL (70-105); UREA NITROGEN BLOOD 28 mg/dL (9-23)
[2024-07-04 06:58] LABS: PHOSPHORUS 2.8 mg/dL (2.5-4.9)
[2024-07-04 07:34] LABS: CREATININE 5.3 mg/dL (0.6-1.0)
[2024-07-04 08:05] LABS: INFLUENZA TYPE A Presumptive Negative (Pres. Neg.)
[2024-07-04 08:06] LABS: INFLUENZA TYPE B Presumptive Negative (Pres. Neg.)
[2024-07-04] MEDS ORDERED: DEXTROSE 50% WATER 50ML SYRINGE IV PRN (16:30)
[2024-07-04] MEDS: BLOOD SUGAR DIAGNOSTIC STRIP TEST SCH (17:23)
[2024-07-04] MEDS: INSULIN LISPRO 100 UNITS/ML SUBCUT SCH (17:33)
[2024-07-04] MEDS: INSULIN GLARGINE 100 UNITS/ML SUBCUT SCH (23:48)
[2024-07-05] VITALS (28 sets, daily range): BP systolic 116–142; BP diastolic 55–80; PULSE 89–110; RESP 12–27; TEMP 36.2–36.6; O2SAT 88–98
[2024-07-05 06:06] LABS: BASOPHILS % 0.6 % (0.0-2.0); DIFFERENTIAL COMMENT 0; EOSINOPHILS % 1.6 % (0.0-5.0); HEMOGLOBIN. 10.9 g/dL (12.0-16.0); LYMPHOCYTES % 18.5 % (20.0-50.0); MEAN CORPUSCULAR HEMOGLOBIN 24.6 pg (28.0-32.0); MEAN CORPUSCULAR VOLUME 79.4 fL (81.0-99.0); MEAN PLATELET VOLUME 9.3 fl (7.4-10.4); MONOCYTES % 13.4 % (2.0-8.0); NEUTROPHILS % 65.9 % (40.0-76.0); PLATELET 194 x1000/uL (130-400); RED BLOOD CELL COUNT 4.41 mill/uL (4.2-5.4); WHITE BLOOD COUNT 7.3 x1000/uL (4.5-11.0)
[2024-07-05 06:13] LABS: CHLORIDE 97 mEq/L (98-107); SODIUM 135 mEq/L (136-145)
[2024-07-05 06:14] LABS: CALCIUM 9.4 mg/dL (8.7-10.4); CARBON DIOXIDE 26 mEq/L (21-32)
[2024-07-05 06:19] LABS: GLUCOSE 347 mg/dL (70-105); UREA NITROGEN BLOOD 40 mg/dL (9-23)
[2024-07-05 06:21] LABS: PHOSPHORUS 2.6 mg/dL (2.5-4.9)
[2024-07-05 06:38] LABS: CREATININE 6.2 mg/dL (0.6-1.0)
[2024-07-05] MEDS: ASPIRIN 81MG TABLET PO SCH (10:02)
[2024-07-05 16:19] LABS: BG BASE EXCESS -0.3 mmol/L (-2.0-3.0); BG CARBOXYHEMOGLOBIN 0.9 % (0.5-1.5); BG DEOXYHEMOGLOBIN 4.9 % (0.0-5.0); BG FRACTION INSPIRED OXYGEN 60; BG METHEMOGLOBIN 0.2 % (0.5-1.5); BG PH 7.418 (7.350-7.450); BG PO2 77.9 mmHg (83.0-108.0); BG SAMPLE SITE LEFT RADIAL; BG TOTAL HEMOGLOBIN 11.8 g/dL (12.0-16.0); BG VENT MODE HIGH FLOW
[2024-07-06] VITALS (18 sets, daily range): BP systolic 114–141; BP diastolic 58–86; PULSE 83–100; RESP 12–25; TEMP 36.3–36.6; O2SAT 92–100
[2024-07-06 06:23] LABS: BASOPHILS % 0.8 % (0.0-2.0); DIFFERENTIAL COMMENT 0; EOSINOPHILS % 2.2 % (0.0-5.0); HEMATOCRIT. 33.7 % (36.0-48.0); HEMOGLOBIN. 10.7 g/dL (12.0-16.0); LYMPHOCYTES % 22.1 % (20.0-50.0); MEAN CORPUSCULAR HEMOGLOBIN 24.9 pg (28.0-32.0); MEAN CORPUSCULAR HGB CONC 31.6 g/dL (31.0-37.0); MEAN CORPUSCULAR VOLUME 78.8 fL (81.0-99.0); MEAN PLATELET VOLUME 9.6 fl (7.4-10.4); MONOCYTES % 11.2 % (2.0-8.0); NEUTROPHILS % 63.7 % (40.0-76.0); PLATELET 183 x1000/uL (130-400); RED BLOOD CELL COUNT 4.28 mill/uL (4.2-5.4); RED CELL DISTRIBUTION WIDTH 19.9 % (11.6-14.6); WHITE BLOOD COUNT 6.6 x1000/uL (4.5-11.0)
[2024-07-06 06:42] LABS: CALCIUM 9.2 mg/dL (8.7-10.4); CARBON DIOXIDE 26 mEq/L (21-32); CHLORIDE 102 mEq/L (98-107); POTASSIUM 4.7 mEq/L (3.5-5.1); SODIUM 137 mEq/L (136-145)
[2024-07-06 06:48] LABS: GLUCOSE 326 mg/dL (70-105); UREA NITROGEN BLOOD 37 mg/dL (9-23)
[2024-07-06 06:50] LABS: PHOSPHORUS 1.9 mg/dL (2.5-4.9)
[2024-07-06 06:56] LABS: CREATININE 5.2 mg/dL (0.6-1.0)
[2024-07-06] MEDS: IPRATROPIUM/ALBUTEROL 0.5-3(2.5)MG/3ML NEB HHN PRN (08:10)
[2024-07-06] MEDS: POTASSIUM-SODIUM PHOSPHATE POWDER PACKET PO SCH (09:26)
[2024-07-07] VITALS (19 sets, daily range): BP systolic 78–151; BP diastolic 35–93; PULSE 89–115; RESP 13–28; TEMP 36.1–36.7; O2SAT 80–99
[2024-07-07] MEDS: INSULIN GLARGINE 100 UNITS/ML SUBCUT SCH ×2 (00:03→21:33)
[2024-07-07 06:38] LABS: BASOPHILS % 0.5 % (0.0-2.0); DIFFERENTIAL COMMENT 0; EOSINOPHILS % 2.4 % (0.0-5.0); HEMATOCRIT. 35.7 % (36.0-48.0); MEAN CORPUSCULAR HEMOGLOBIN 24.4 pg (28.0-32.0); MEAN CORPUSCULAR HGB CONC 30.9 g/dL (31.0-37.0); MEAN CORPUSCULAR VOLUME 79.1 fL (81.0-99.0); MEAN PLATELET VOLUME 9.7 fl (7.4-10.4); MONOCYTES % 10.3 % (2.0-8.0); NEUTROPHILS % 64.8 % (40.0-76.0); PLATELET 201 x1000/uL (130-400); RED BLOOD CELL COUNT 4.52 mill/uL (4.2-5.4); RED CELL DISTRIBUTION WIDTH 20.1 % (11.6-14.6); WHITE BLOOD COUNT 7.2 x1000/uL (4.5-11.0)
[2024-07-07 06:44] LABS: CHLORIDE 100 mEq/L (98-107); POTASSIUM 5.4 mEq/L (3.5-5.1); SODIUM 136 mEq/L (136-145)
[2024-07-07 06:45] LABS: CARBON DIOXIDE 26 mEq/L (21-32)
[2024-07-07 06:46] LABS: CALCIUM 9.3 mg/dL (8.7-10.4)
[2024-07-07 06:51] LABS: GLUCOSE 321 mg/dL (70-105); UREA NITROGEN BLOOD 49 mg/dL (9-23)
[2024-07-07 06:55] LABS: CREATININE 5.9 mg/dL (0.6-1.0)
[2024-07-07] MEDS: INSULIN REGULAR (HUMULIN R) 1000UNITS/10ML VIAL SUBCUT SCH (11:37)
[2024-07-08] VITALS (14 sets, daily range): BP systolic 118–154; BP diastolic 63–88; PULSE 91–105; RESP 15–25; TEMP 36.3–37; O2SAT 91–100
[2024-07-08 07:22] LABS: HEMATOCRIT 35.7 % (36.0-48.0); MEAN CORPUSCULAR HEMOGLOBIN 24.3 pg (28.0-32.0); MEAN CORPUSCULAR HGB CONC 30.9 g/dL (31.0-37.0); MEAN CORPUSCULAR VOLUME 78.7 fL (81.0-99.0); PLATELET 191 x1000/uL (130-400); RED BLOOD CELL COUNT 4.54 mill/uL (4.2-5.4); RED CELL DISTRIBUTION WIDTH 20.2 % (11.6-14.6)
[2024-07-08 07:49] LABS: CALCIUM 9.3 mg/dL (8.7-10.4); CHLORIDE 103 mEq/L (98-107); POTASSIUM 4.9 mEq/L (3.5-5.1); SODIUM 137 mEq/L (136-145)
[2024-07-08 07:50] LABS: CARBON DIOXIDE 27 mEq/L (21-32)
[2024-07-08 07:55] LABS: CREATININE 4.3 mg/dL (0.6-1.0); GLUCOSE 347 mg/dL (70-105); UREA NITROGEN BLOOD 33 mg/dL (9-23)
[2024-07-08 07:57] LABS: PHOSPHORUS 1.6 mg/dL (2.5-4.9)
[2024-07-08] MEDS: METOPROLOL TARTRATE 25MG TABLET PO SCH (08:44)
[2024-07-08] MEDS ORDERED: METOPROLOL SUCCINATE 50MG ER TABLET PO SCH (09:00)
[2024-07-08] MEDS: POTASSIUM-SODIUM PHOSPHATE POWDER PACKET PO SCH (14:51)
[2024-07-09] VITALS (10 sets, daily range): BP systolic 116–148; BP diastolic 61–80; PULSE 93–115; RESP 21–28; TEMP 36.2–37.2; O2SAT 92–100
[2024-07-09] MEDS: GUAIFENESIN 200MG/10ML SUGAR FREE UDC PO NR (03:58)
[2024-07-09 05:55] LABS: CHLORIDE 102 mEq/L (98-107); POTASSIUM 4.6 mEq/L (3.5-5.1); SODIUM 136 mEq/L (136-145)
[2024-07-09 05:56] LABS: CALCIUM 9.5 mg/dL (8.7-10.4); CARBON DIOXIDE 26 mEq/L (21-32)
[2024-07-09 06:01] LABS: GLUCOSE 302 mg/dL (70-105); UREA NITROGEN BLOOD 49 mg/dL (9-23)
[2024-07-09 06:03] LABS: PHOSPHORUS 1.5 mg/dL (2.5-4.9)
[2024-07-09 06:09] LABS: HEMATOCRIT 35.3 % (36.0-48.0); MEAN CORPUSCULAR HEMOGLOBIN 24.1 pg (28.0-32.0); MEAN CORPUSCULAR HGB CONC 31.1 g/dL (31.0-37.0); MEAN CORPUSCULAR VOLUME 77.5 fL (81.0-99.0); PLATELET 218 x1000/uL (130-400); RED BLOOD CELL COUNT 4.56 mill/uL (4.2-5.4); RED CELL DISTRIBUTION WIDTH 20.2 % (11.6-14.6); WHITE BLOOD COUNT 14.4 x1000/uL (4.5-11.0)
[2024-07-09] MEDS: ACETAMINOPHEN 650MG/20.3ML UDC GT PRN (14:39)
[2024-07-09] MEDS ORDERED: HYDROCODONE/ACETAMINOPHEN 5/325MG TABLET GT PRN (16:00)
[2024-07-09] MEDS ORDERED: NALOXONE HCL 0.4MG/ML VIAL IV PRN (16:15)
[2024-07-09] MEDS: INSULIN LISPRO 100 UNITS/ML SUBCUT SCH (17:34)
[2024-07-09] MEDS ORDERED: IPRATROPIUM/ALBUTEROL 0.5-3(2.5)MG/3ML NEB HHN PRN (18:00)
[2024-07-09 18:53] LABS: BG BASE EXCESS 1.2 mmol/L (-2.0-3.0); BG CARBOXYHEMOGLOBIN 0.8 % (0.5-1.5); BG DEOXYHEMOGLOBIN 7.6 % (0.0-5.0); BG FRACTION INSPIRED OXYGEN 40; BG HCO3 ACT 24.8 mmol/L (21.0-28.0); BG METHEMOGLOBIN 0.1 % (0.5-1.5); BG OXYGEN SATURATION 92.3 % (94.0-98.0); BG OXYHEMOGLOBIN 91.5 % (94.0-98.0); BG PCO2 35.5 mmHg (32.0-45.0); BG PH 7.462 (7.350-7.450); BG PO2 65.7 mmHg (83.0-108.0); BG SAMPLE SITE LEFT RADIAL; BG TOTAL HEMOGLOBIN 10.9 g/dL (12.0-16.0); BG VENT MODE NASAL CANNULA
[2024-07-09] MEDS: IPRATROPIUM/ALBUTEROL 0.5-3(2.5)MG/3ML NEB HHN SCH (20:28)
[2024-07-09 20:37] LABS: POTASSIUM 4.6 mEq/L (3.5-5.1)
[2024-07-09 20:39] LABS: CALCIUM 9.3 mg/dL (8.7-10.4)
[2024-07-09 20:44] LABS: CREATININE 5.4 mg/dL (0.6-1.0)
[2024-07-09 20:46] LABS: BETA HYDROXYBUTYRATE 0.1 mMol/L (0.0-0.3)
[2024-07-09] MEDS: INSULIN GLARGINE 100 UNITS/ML SUBCUT SCH (22:52)
[2024-07-10] VITALS (15 sets, daily range): BP systolic 99–144; BP diastolic 49–74; PULSE 94–112; RESP 18–20; TEMP 36.3–36.9; O2SAT 95–100
[2024-07-10 06:38] LABS: HEMATOCRIT. 31.2 % (36.0-48.0); HEMOGLOBIN. 9.7 g/dL (12.0-16.0); MEAN CORPUSCULAR HEMOGLOBIN 24.2 pg (28.0-32.0); MEAN PLATELET VOLUME 9.2 fl (7.4-10.4); PLATELET 178 x1000/uL (130-400); RED CELL DISTRIBUTION WIDTH 20.2 % (11.6-14.6); WHITE BLOOD COUNT 22.9 x1000/uL (4.5-11.0)
[2024-07-10 06:46] LABS: CARBON DIOXIDE 25 mEq/L (21-32); CHLORIDE 99 mEq/L (98-107); POTASSIUM 5.2 mEq/L (3.5-5.1); SODIUM 133 mEq/L (136-145)
[2024-07-10 06:47] LABS: CALCIUM 9.6 mg/dL (8.7-10.4)
[2024-07-10 06:52] LABS: DIFFERENTIAL COMMENT 1; GLUCOSE 168 mg/dL (70-105); UREA NITROGEN BLOOD 62 mg/dL (9-23)
[2024-07-10 06:54] LABS: PHOSPHORUS 2.1 mg/dL (2.5-4.9)
[2024-07-10 07:24] LABS: CREATININE 5.8 mg/dL (0.6-1.0)
[2024-07-10 12:20] LABS: BG BASE EXCESS 3.1 mmol/L (-2.0-3.0); BG CARBOXYHEMOGLOBIN 0.9 % (0.5-1.5); BG DEOXYHEMOGLOBIN 7.3 % (0.0-5.0); BG FRACTION INSPIRED OXYGEN 36; BG HCO3 ACT 26.2 mmol/L (21.0-28.0); BG METHEMOGLOBIN 0.1 % (0.5-1.5); BG OXYGEN SATURATION 92.6 % (94.0-98.0); BG OXYHEMOGLOBIN 91.7 % (94.0-98.0); BG PCO2 34.8 mmHg (32.0-45.0); BG PH 7.495 (7.350-7.450); BG PO2 59.3 mmHg (83.0-108.0); BG SAMPLE SITE LEFT RADIAL; BG TOTAL HEMOGLOBIN 11.3 g/dL (12.0-16.0); BG VENT MODE NASAL CANNULA
[2024-07-10 13:21] LABS: ANISOCYTOSIS 2+; MICROCYTOSIS 1+; PLATELET ESTIMATE NORMAL
[2024-07-11] VITALS (9 sets, daily range): BP systolic 119–138; BP diastolic 52–66; PULSE 90–104; RESP 18–22; TEMP 36.3–36.8; O2SAT 94–100
[2024-07-11] MEDS: VANCOMYCIN 1.25GM/250ML 250 ML IV NR (00:53)
[2024-07-11 06:22] LABS: CHLORIDE 99 mEq/L (98-107); POTASSIUM 4.5 mEq/L (3.5-5.1); SODIUM 134 mEq/L (136-145)
[2024-07-11 06:23] LABS: CARBON DIOXIDE 27 mEq/L (21-32)
[2024-07-11 06:25] LABS: BASOPHILS % 0.3 % (0.0-2.0); DIFFERENTIAL COMMENT 0; EOSINOPHILS % 1.3 % (0.0-5.0); HEMATOCRIT. 28.7 % (36.0-48.0); LYMPHOCYTES % 11.9 % (20.0-50.0); MEAN CORPUSCULAR HEMOGLOBIN 24.3 pg (28.0-32.0); MEAN CORPUSCULAR HGB CONC 31.5 g/dL (31.0-37.0); MEAN CORPUSCULAR VOLUME 77.1 fL (81.0-99.0); MEAN PLATELET VOLUME 9.5 fl (7.4-10.4); MONOCYTES % 11.4 % (2.0-8.0); NEUTROPHILS % 75.1 % (40.0-76.0); PLATELET 160 x1000/uL (130-400); RED BLOOD CELL COUNT 3.72 mill/uL (4.2-5.4); RED CELL DISTRIBUTION WIDTH 20.6 % (11.6-14.6)
[2024-07-11 06:28] LABS: CREATININE 4.5 mg/dL (0.6-1.0); GLUCOSE 266 mg/dL (70-105); UREA NITROGEN BLOOD 48 mg/dL (9-23)
[2024-07-11 06:30] LABS: PHOSPHORUS 2.1 mg/dL (2.5-4.9)
[2024-07-11] MEDS: BLOOD SUGAR DIAGNOSTIC STRIP TEST SCH (06:47)
[2024-07-11] MEDS: INSULIN LISPRO 100 UNITS/ML SUBCUT SCH (06:55)
[2024-07-11] MEDS: CLOPIDOGREL 75MG TABLET GT SCH (09:36)
[2024-07-11] MEDS: METOPROLOL TARTRATE 25MG TABLET GT SCH (09:37)
[2024-07-11] MEDS: ASPIRIN 81MG TABLET GT SCH (09:37)
[2024-07-11] MEDS: POTASSIUM-SODIUM PHOSPHATE POWDER PACKET GT SCH (09:38)
[2024-07-11] MEDS: GUAIFENESIN 200MG/10ML SUGAR FREE UDC GT SCH (13:35)
[2024-07-12] VITALS (17 sets, daily range): BP systolic 88–142; BP diastolic 48–78; PULSE 56–106; RESP 14–22; TEMP 36.00288–36.6696; O2SAT 94–97
[2024-07-12 06:41] LABS: BASOPHILS % 0.7 % (0.0-2.0); DIFFERENTIAL COMMENT 0; EOSINOPHILS % 2.5 % (0.0-5.0); HEMATOCRIT. 29.2 % (36.0-48.0); HEMOGLOBIN. 9.2 g/dL (12.0-16.0); LYMPHOCYTES % 16.9 % (20.0-50.0); MEAN CORPUSCULAR HEMOGLOBIN 24.3 pg (28.0-32.0); MEAN CORPUSCULAR HGB CONC 31.5 g/dL (31.0-37.0); MEAN CORPUSCULAR VOLUME 77.1 fL (81.0-99.0); MEAN PLATELET VOLUME 9.7 fl (7.4-10.4); MONOCYTES % 13.3 % (2.0-8.0); NEUTROPHILS % 66.6 % (40.0-76.0); PLATELET 173 x1000/uL (130-400); RED BLOOD CELL COUNT 3.79 mill/uL (4.2-5.4); RED CELL DISTRIBUTION WIDTH 20.1 % (11.6-14.6); WHITE BLOOD COUNT 8.1 x1000/uL (4.5-11.0)
[2024-07-12 06:55] LABS: CHLORIDE 99 mEq/L (98-107); POTASSIUM 4.7 mEq/L (3.5-5.1); SODIUM 135 mEq/L (136-145)
[2024-07-12 06:56] LABS: CALCIUM 9.1 mg/dL (8.7-10.4); CARBON DIOXIDE 28 mEq/L (21-32)
[2024-07-12 07:01] LABS: GLUCOSE 201 mg/dL (70-105); UREA NITROGEN BLOOD 66 mg/dL (9-23)
[2024-07-12 07:03] LABS: PHOSPHORUS 2.6 mg/dL (2.5-4.9)
[2024-07-12 07:26] LABS: CREATININE 5.2 mg/dL (0.6-1.0)
[2024-07-12] MEDS: EPOETIN ALFA-EPBX 4,000 UNIT/ML VIAL SUBCUT SCH (22:08)
[2024-07-13] MEDS ORDERED: POTASSIUM-SODIUM PHOSPHATE POWDER PACKET GT SCH (09:00)
== END 2024-07-12 23:00 | disposition home health service (06) | DRG 871 ==
LOC: ER 22:19 → ENRESERV 06-30 01:31 → 5EST 06-30 02:10 → 6WST 07-10 00:32
PROVIDERS: ADMIT Hospitalist; ATTEND Hospitalist
PROC: 5A1D70Z Performance of Urinary Filtration, Intermittent, Less than 6 Hours Per Day (ICD-10-PCS; principal; 2024-06-30)
PROC: 5A1D70Z Performance of Urinary Filtration, Intermittent, Less than 6 Hours Per Day (ICD-10-PCS; 2024-07-03)
PROC: 5A1D70Z Performance of Urinary Filtration, Intermittent, Less than 6 Hours Per Day (ICD-10-PCS; 2024-07-05)
PROC: 5A1D70Z Performance of Urinary Filtration, Intermittent, Less than 6 Hours Per Day (ICD-10-PCS; 2024-07-07)
PROC: 5A1D70Z Performance of Urinary Filtration, Intermittent, Less than 6 Hours Per Day (ICD-10-PCS; 2024-07-10)
PROC: 5A1D70Z Performance of Urinary Filtration, Intermittent, Less than 6 Hours Per Day (ICD-10-PCS; 2024-07-12)
DX: A41.89 Other specified sepsis (principal); G92.8 Other toxic encephalopathy; L89.153 Pressure ulcer of sacral region, stage 3; J18.9 Pneumonia, unspecified organism; N18.6 End stage renal disease; J69.0 Pneumonitis due to inhalation of food and vomit; J96.21 Acute and chronic respiratory failure with hypoxia; E87.3 Alkalosis; J44.0 Chronic obstructive pulmonary disease with (acute) lower respiratory infection; I69.351 Hemiplegia and hemiparesis following cerebral infarction affecting right dominant side; I13.2 Hypertensive heart and chronic kidney disease with heart failure and with stage 5 chronic kidney disease, or end stage renal disease; E87.1 Hypo-osmolality and hyponatremia; K56.49 Other impaction of intestine; I50.22 Chronic systolic (congestive) heart failure; M86.8X7 Other osteomyelitis, ankle and foot; K94.23 Gastrostomy malfunction; G80.9 Cerebral palsy, unspecified; D50.9 Iron deficiency anemia, unspecified; E11.22 Type 2 diabetes mellitus with diabetic chronic kidney disease; E11.621 Type 2 diabetes mellitus with foot ulcer; R56.9 Unspecified convulsions; E78.5 Hyperlipidemia, unspecified; G47.33 Obstructive sleep apnea (adult) (pediatric); D63.1 Anemia in chronic kidney disease; L98.492 Non-pressure chronic ulcer of skin of other sites with fat layer exposed; Y83.8 Other surgical procedures as the cause of abnormal reaction of the patient, or of later complication, without mention of misadventure at the time of the procedure; Y92.238 Other place in hospital as the place of occurrence of the external cause; E87.6 Hypokalemia; E11.65 Type 2 diabetes mellitus with hyperglycemia; E83.39 Other disorders of phosphorus metabolism; E83.41 Hypermagnesemia; Z79.899 Other long term (current) drug therapy; Z22.322 Carrier or suspected carrier of Methicillin resistant Staphylococcus aureus; Z74.01 Bed confinement status; Z99.2 Dependence on renal dialysis; Z99.81 Dependence on supplemental oxygen; Z88.0 Allergy status to penicillin
CPT/HCPCS: 36415; 36600; 71045; 73620; 74018; 74176; 80048; 80061; 80076; 80202; 82010; 82375; 82805; 82962; 83036; 83605; 83735; 83880; 83930; 84100; 84134; 84145; 84439; 84443; 84484; 85025; 85027; 85651; 86705; 86709; 87070; 87077; 87186; 87340; 87804; 90935; 93005; 94003; 94070; 94640; 94664; 94760; 98960; 99291; A4606; J0885; J1650; J1815; J1953; J1956; J2405; J2470; J3260; J3370; J3490; J7608